=== PATIENT | male | born 1945 | race Caucasian/White ===

== ENCOUNTER → 2024-03-16 14:21 | Outpatient (REF) | payer MEDICARE, SELFPAY | LOC: RAD 14:21 | PROVIDERS: ATTENDING PHYSICIAN Physician Assistant; FAMILY PHYSICIAN Family Medicine | DX: I73.9 Peripheral vascular disease, unspecified (principal) | CPT/HCPCS: 93922; 93925 ==

== ENCOUNTER → 2025-04-06 10:23 | Outpatient (REF) | payer MEDICARE, SELFPAY | LOC: RAD 10:23 | PROVIDERS: ATTENDING PHYSICIAN Surgery Vascular Surgery; FAMILY PHYSICIAN Family Medicine | DX: I73.9 Peripheral vascular disease, unspecified (principal) | CPT/HCPCS: 93922; 93925 ==

== ENCOUNTER 2025-04-29 20:52 | Inpatient (IN) | payer MEDICARE, SELFPAY ==
[2025-04-29] VITALS (12 sets, daily range): BP systolic 93–132; BP diastolic 54–71; PULSE 90–97; BMI 28.3
[2025-04-29 17:38] LABS: Hematocrit 41.6 % (39.0-52.0); Hemoglobin 14.3 g/dL (13.0-18.0); Mean Corp Hgb Conc. 34.4 g/dL (33.0-37.0); Mean Corpuscular Volume 89.7 fL (80.0-94.0); Nucleated Red Blood Cells % 0 % (-); Platelet Count 320 10^3/uL (130-400); Red Cell Dist. Width 13.2 % (11.5-14.5)
[2025-04-29 17:50] LABS: ALT (SGPT) 29 U/L (0-50); AST (SGOT) 26 U/L (17-59); Albumin 4.9 g/dl (3.5-5.0); Alkaline Phosphatase 93 U/L (38-126); Blood Urea Nitrogen 30 mg/dl (9-20); Calcium 10.0 mg/dl (8.4-10.2); Carbon Dioxide 16 mmol/L (22-30); Chloride 102 mmol/L (98-107); Estimated Creatinine Clearance 51 ml/min; Glucose 217 mg/dl (70-99); Potassium 4.2 mmol/L (3.5-5.1); Sodium 135 mmol/L (135-145); Total Protein 7.7 g/dl (6.3-8.2); eGFR 56.23
[2025-04-29 18:03] LABS: Troponin I < 0.012 ng/ml
[2025-04-29] MEDS: NSS 1000 IV ×3 (18:05→23:18)
[2025-04-29] MEDS: ZOSYN 100 IV (19:50)
--- NOTE | 2025-04-29 19:52 | ED.GENMED ---
History of Present Illness
General
Chief Complaint: Breathing Problem
Source: patient and family
Time Seen by Provider: 04/29/25 17:15
History of Present Illness
History of Present Illness:
Note:
CHIEF COMPLAINT(S)
Dizziness and feeling of imminent syncope while driving.
HISTORY OF PRESENT ILLNESS
The patient is a 80-year-old male with a history of hypertension and diabetes. He reports starting to feel unwell around 1:30 PM today. Earlier in the day, he felt normal upon waking. The symptoms began after going to [employer] and included dizziness
and a tingling sensation in the feet. He described feeling as if he might pass out while driving, prompting him to have his take over driving. Upon arriving home, he asked his to call emergency services due to not feeling right. The
patient denies chest pain, heart palpitations, or fluttering but acknowledges experiencing slight shortness of breath. He has a history of high blood pressure and maintains his blood sugar levels around 100 mg/dL, though it yara to 171 mg/dL two
days ago after eating ice cream. He reported minor diarrhea the day before and again today.
PAST MEDICAL AND SURGICAL HISTORY
Hypertension, Diabetes.
ADDITIONAL HISTORY OBTAINED FROM SOURCE OTHER THAN THE PATIENT
The patients reported that she had to take over driving because the patient felt he was unable to continue safely due to his symptoms.
CHRONIC MEDICAL CONDITIONS SIGNIFICANTLY AFFECTING CARE
Hypertension, Diabetes.
MEDICATIONS
The patient is currently on Atorvastatin, Valsartan, Empagliflozin (Jardiance), and Metformin.
REVIEW OF SYSTEMS
- General: Reports dizziness and feeling of imminent syncope.
- Neurological: Tingling sensation in the feet.
- Respiratory: Slight shortness of breath noted.
PHYSICAL EXAM
General: Alert, no acute distress.
Skin: Warm, dry.
Head: Normocephalic, atraumatic.
Neck: Supple, trachea midline.
Eyes, Ears, Nose, Mouth, and Throat: Oral mucosa moist.
Cardiovascular: Normal peripheral perfusion, heart rate noted in the 90s, no murmurs.
Respiratory: Respirations are non-labored, lungs clear to auscultation.
Gastrointestinal: Abdomen nondistended.
Back: Normal range of motion, Normal alignment.
Musculoskeletal: Normal range of motion, normal strength.
Neurological: Alert and oriented to person, place, time, and situation, no focal neurological deficit observed.
Psychiatric: Cooperative, appropriate mood & affect.
PROBLEM LIST
Acute:
- Dizziness with near-syncope
- Tingling sensation in the feet
Chronic:
- Hypertension
- Diabetes mellitus
PLAN
- Perform orthostatic vital signs to assess for postural hypotension.
- Initiate IV fluids to address potential dehydration.
- Obtain laboratory tests including kidney function and hemoglobin levels.
- Conduct continuous monitoring and alert the care team if symptoms worsen.
- Review and assess echocardiogram and visit with vascular surgeon to check for any significant changes in vascular health.
DIFFERENTIAL DIAGNOSIS
The Differential Diagnosis includes, in no particular order and is not limited to:
1. Orthostatic hypotension
2. Transient ischemic attack
3. Cardiac arrhythmia
4. Vestibular dysfunction
5. Dehydration
6. Medication side effect
7. Vertigo
8. Hypoglycemia
9. Anemia
10. Peripheral neuropathy
EKG
My independent EKG interpretation is:
- Rhythm: Normal
- Heart Rate: Not specified
- [employer]: Normal
- Intervals: Normal
- ST Segment/T Wave Changes: Non-specific changes observed
- Additional Observations: No Q2C2 changes detected
Disposition:
SUMMARY OF ENCOUNTER
The patient, a 80-year-old male, presented to the emergency department with near-syncopal symptoms accompanied by shortness of breath. Initial findings included a white blood cell count of 18,000 and a lactic acid level of 3.2, indicating sepsis.
The patient also displayed a blood glucose level of 217 mg/dL and had a hazy opacity in the left lung on chest X-ray, suggestive of pneumonia. The patients blood pressure was recorded as low as 90 systolic in the emergency department, raising
concern for sepsis. Following administration of IV fluids, the patients condition improved, with blood pressure rising to 115 systolic, and the patient reported feeling better. Broad-spectrum antibiotics were ordered, and blood cultures were taken.
DISPOSITION
Admit.
ASSESSMENT
The patient showed signs of sepsis likely due to pneumonia, with concurrent hyperglycemia and hypotension, which were addressed with fluids and antibiotic treatment.
EMERGENCY TREATMENTS ADMINISTERED
IV fluids were administered in the emergency department.
MANAGEMENT OF THE PATIENTS CARE WAS DISCUSSED WITH
The case was discussed with hospitalists.
PLAN
Plan includes admitting the patient for continued monitoring and management of sepsis, initiation and adjustment of broad-spectrum antibiotics, and continued monitoring of vital signs and laboratory values to assess response to treatment.
INDEPENDENT REVIEW OF LABS AND INTERPRETATION OF TESTS
My independent review of CBC indicates leukocytosis with a white blood cell count of 18,000.
My independent review of blood chemistry indicates lactic acidosis with a lactic acid level of 3.2.
My independent review of blood glucose indicates hyperglycemia at 217 mg/dL.
DIAGNOSIS
Pneumonia, unspecified organism (ICD-10: J18.9)
Lactic acidosis (ICD-10: E87.2)
Leukocytosis, unspecified (ICD-10: D72.829)
Hyperglycemia, unspecified (ICD-10: R73.9)
Sepsis, unspecified (ICD-10: A41.9)
Phy Exam
Physical Exam
Physical Exam:
.
Scores
Heart Failure Risk
Heart Failure Risk Score: Not Applicable
Course
Orders/Labs/Results
Orders:
Orders
04/29/25 Dinner
1800 calorie (15 carb) Diabetic
At Your Request: Full Participation
04/29/25 17:04
Electrocardiogram (*1) Urgent
Reason for Study: Hypertension, Benign
EKG- Treatment ONCE
04/29/25 17:26
Complete Blood Count/With Diff Urgent
Comprehensive Metabolic Panel Urgent
Troponin I Urgent
04/29/25 17:58
0.9% Sodium Chloride 1000 ml [Nss] 1,000 ml IV BOLUS
04/29/25 17:59
CR Chest - 2 Views Urgent
Comment:
Reason For Exam: weak, sob
04/29/25 18:05
Lactic Acid Q4H
Comment: CANCEL 2nd LACTIC ACID IF 1st LACTIC ACID IS LESS THAN 2
Blood Culture Q30M
NATALIE Source: Blood/Venous
Specimen Description:
04/29/25 18:52
0.9% Sodium Chloride 1000 ml [Nss] 1,000 ml IV BOLUS
Piperacillin/Tazo 4.5 Gram [Zosyn] 4.5 gram in 100 ml IV NOW
04/29/25 19:07
COVID-19 Antigen Urgent
Source: Nasal Swab
Blood Culture Q30M
NATALIE Source: Blood/Venous
Specimen Description:
04/29/25 19:53
Urinalysis Reflex To Culture Urgent
Date Specimen was Collected: 04/29/25
Time Specimen was Collected: 19:49
04/29/25 20:32
Admit/Transfer Patient As Directed
Co-Sign Provider:
Level of Care: Inpatient admission
Assign to:: Telemetry
Physician / Group: Prerna
Diagnosis: Sepsis/PNA
Reason for Telemetry: Syncope
Date to Stop Telemetry: 05/01/25
Time to Stop Telemetry: 11:00
Reason for Hospitalization: syncope
Expected length of stay greater than two midnights?: Yes
ELOS- Estimated Length of Stay in days: 2
I certify the patient meets the requirements for IP care: Yes
PRN Pain Medication Management As Directed
May give lesser potent ordered pain med per pt: Yes
preference::
Protocol:: Medication orders for pain may be administered in a
manner that supports deferring to patient preference
when the pt is:
- Requesting an ordered lesser potent pain medication.
Least to most potent pain medications are defined
as: acetaminophen < NSAID < tramadol < opioids
(morphine, oxycodone, hydromorphone).
- Requesting a lesser dose of the same medication IF
ORDERED.
- Requesting a less intrusive route of administration
if both routes are prescribed by the provider (PO <
IV).
04/29/25 20:33
Code Status As Directed
Resuscitation Status: Full Code
04/29/25 20:41
Doxycycline [Vibramycin] 100 mg PO NOW STA
04/29/25 20:44
Vancomycin [Vancocin] 2,000 mg 0.9% Sodium Chloride 500 ml [Nss] 500 ml IV NOW
04/29/25 22:27
0.9% Sodium Chloride 1000 ml [Nss] 1,000 ml IV 100 mls/hr
Acetaminophen [Tylenol] 650 mg PO Q4HPRN PRN
Guaifenesin/Dextromethorphan [Robitussin Dm] 5 ml PO Q6HPRN PRN
Mag Hydrox/Al Hydrox/Simeth [Maalox] 15 ml PO QIDPRN PRN
Ondansetron Injectable [Zofran] 4 mg IV Q6HPRN PRN
04/29/25 22:27
Respiratory Culture/Gram Stain Urgent
NATALIE Source: Sputum
Specimen Description:
Date Specimen was Collected: 04/29/25
Time Specimen was Collected: 23:14
Activity As Directed
Activity Level: Out of Bed-Early Mobility
Bedside Glucose Monitoring As Directed
Frequency: AC&HS
Intake/ Output As Directed
Frequency: Per unit guidelines
Orthostatic Vital Signs As Directed
Orthostatic VS Frequency: Daily
Vital Signs As Directed
Frequency: Per unit guidelines
Weight As Directed
Frequency: Once
Comment: on admission
Pulse Ox/cont/shift [RESP] Routine
Quantity: 1
Special Instructions: notify provider if SPO2 < 91%
Rx Incentive Spirometry [RESP] Routine
Frequency: q1h while awake
Pt Eval And Treat Routine
Activity Level: With Assistance
DX Deep Vein Thrombosis Video Routine
04/29/25 22:40
Pantoprazole [Protonix] 40 mg PO DAILYPRN PRN
04/29/25 23:10
Lactic Acid Q4H
Comment: CANCEL 2nd LACTIC ACID IF 1st LACTIC ACID IS LESS THAN 2
04/29/25 23:11
Influenza A+B Rapid Molecular Routine
NATALIE Source: Nasal Swab
Specimen Description:
04/29/25 23:12
MRSA Screen Routine
NATALIE Source: Nose
Specimen Description:
04/29/25 23:14
Legionella Urinary Antigen Routine
NATALIE Source: Urine
Specimen Description:
Strep pneumoniae Antigen Routine
NATALIE Source: Urine
Specimen Description:
04/30/25 02:00
CefTRIAXone [Rocephin] 1,000 mg IV Q24H
04/30/25 06:00
Basic Metabolic Panel IN AM
Complete Blood Count/No Diff IN AM
04/30/25 07:30
Insulin Aspart Corrective Low [Novolog Flexpen-Low Resistance] See Protocol SC AC
04/30/25 08:00
Atorvastatin [Lipitor] 10 mg PO DAILY
Cyanocobalamin [Vitamin B-12] 1,000 mcg PO DAILY
Dapagliflozin [Farxiga] 10 mg PO DAILY
Doxycycline [Vibramycin] 100 mg PO BID
Glipizide Extended Release [Glucotrol Xl (Extended Release)] 20 mg PO DAILY
Valsartan [Diovan] 160 mg PO DAILY
04/30/25 18:00
Enoxaparin Sodium [Lovenox] 40 mg SC QPM
05/01/25 11:00
DC Protocol for Telemetry ONCE
Abnormal Lab Results
04/29/25 04/29/25 04/29/25
17:26 18:05 19:53
WBC 18.1 H 10^3/uL
(4.8-10.8)
RBC 4.64 L 10^6/uL
(4.70-6.10)
MPV 11.0 H fL
(7.4-10.4)
Abs Immat Gran (auto) 0.1 H 10^3/uL
(0-0.05)
Absolute Neuts (auto) 13.6 H 10^3/uL
(1.4-6.5)
Absolute Monos (auto) 1.4 H 10^3/uL
(0.1-0.6)
Lymphocytes % 15.4 L %
(20.5-51.1)
Carbon Dioxide 16 L mmol/L
(22-30)
BUN 30 H mg/dl
(9-20)
Glucose 217 H mg/dl
(70-99)
Lactic Acid 3.2 H mmol/L
(0.7-2.0)
Urine Glucose 4+ A
(Negative)
04/29/25 17:26
04/29/25 17:26
Vital Signs
Initial and Last Documented VS:
Initial Vital Signs
Temp Pulse Resp BP Pulse Ox
98.3 F 91 22 108/62 100
04/29/25 17:02 04/29/25 17:02 04/29/25 17:02 04/29/25 17:02 04/29/25 17:02
Last Documented Vital Signs
Temp Pulse Resp BP Pulse Ox
98.3 F 76 18 119/56 100
04/29/25 17:02 04/29/25 19:52 04/29/25 19:52 04/29/25 19:00 04/29/25 19:53
*Pulse Oximetry
SaO2: 100
Oxygen Mode of Delivery: Room air
Patient hypoxic: no
*Critical Care Note
Total Time (30-74mins, 75-104mins- exclusive of procedures): 40 minutes
ED Attending Note
-
Portions of this chart may have been created with voice recognition software.� Occasional wrong word or��sound alike� substitutions may have occurred due to the inherent limitations of voice recognition software.
Discharge Plan
Departure
Patient Disposition: Admit
Date of Disposition: 04/29/25
Time of Disposition: 19:52
Admit to: Telemetry
Presentation/result/management discussed w/ accepting MD/DO: Hospitalist
Discharge Problem:
Sepsis, Pneumonia
Interventions
Interventions:
*Risk Screen - Suicide Last Done: 04/29/25 17:12
*General Assessment Last Done: 04/29/25 17:12
*Neglect/Abuse Screening Last Done: 04/29/25 17:12
*ED- Fall Risk Assessment Last Done: 04/29/25 17:12
*ED COVID-19 Vaccine History Last Done: 04/29/25 17:12
ED- Cardiac Assessment Last Done: 04/29/25 17:08
ED- Pulmonary Assessment Last Done: 04/29/25 17:08
[2025-04-29 20:02] LABS: Urine Character Clear (Clear)
--- NOTE | 2025-04-29 20:10 | HPS.HSE ---
Family Physician
-
Family Physician: Rocael Kimble
Chief Complaint
-
Syncopal episode, shortness of breath
History of Present Illness
This is a 80-year-old male with past medical history of [id number] diabetes, hypertension, presenting to the emergency department for feeling unwell and having an episode of dizziness with tingling sensation in his lower extremities.
Patient reported that he woke up with poor appetite this morning. Reported that he ate less than his usual amount and felt somewhat unwell. His already reported that he needs to go to the emergency department. He did report 1 episode of
loose stools yesterday and today. Otherwise reports he has been in usual state of health without any recent travel sick contacts or hospitalizations. Denies any recent antibiotic use. Denies any recent episodes of orthostatic dizziness,
palpitations, chest pain or exertional dyspnea lower extremity edema cough fevers or chills. He denies having any runny nose sore throat.
By afternoon patient felt lethargic and thought he might walk around to get some air. He went to a shopping mall and while pushing around the cath he felt out of breath and then started feeling lightheaded. When he got into his car he became more
short of breath and diaphoretic. He denies having any chest pain pleuritic or otherwise. He denies any nausea or vomiting. He also reports never having any fevers but continued to have some cold sweats until arrival in the emergency department.
Reports blood sugar levels was around 100 mg per DL but has elevated to 171 mg in the last 2 days. Denies any melena or hematochezia and denies any diarrhea.
In the emergency department his blood pressure was 110/56 with a pulse rate of 76 and he was satting 100% on room air. Temperature was 98.3. This chest x-ray shows a hazy left lower lobe opacity. ECG shows a normal sinus rhythm at a rate of 94.
Troponin was negative. He has a white count of 18 with otherwise normal hemoglobin and platelet counts. His electrolytes were normal except for a bicarb of 16 and anion gap of 17. BUN and creatinine were stable at 30 and 1.3. U/A neg. Viral
panel negative.
Medical History
Past Medical History
Past Medical History: Reports HTN and NIDDM
Past Surgical History: Reports Orthopedic and Tonsilectomy
Social History
Tobacco: Non-smoker
Alcohol: None
Drug: None
Living: With Family
Family History
Family History: Not pertinent
Allergies / Home Medications
Allergies reflects when Allergies were last updated in [facility].
Home Medications with original date entered in [facility]
Allergy/Medication List:
Allergies
Allergy/AdvReac Type Severity Reaction Status Date / Time
No Known Allergies Allergy Unverified 05/04/10 09:48
Home Medications
Hemp-Cbd Gummies 2 tab PO DAILY 04/29/25
acetylcarnitine HCl 250 mg capsule 250 mg PO DAILY 04/29/25
alpha lipoic acid 100 mg capsule 100 mg PO DAILY 04/29/25
atorvastatin 10 mg tablet (Lipitor) 10 mg PO DAILY 04/29/25
coQ10 (ubiquinol) 100 mg capsule 100 mg PO DAILY 04/29/25
cyanocobalamin (vitamin B-12) 1,000 mcg tablet 1,000 mcg PO DAILY 04/29/25
diphenhydramine 25 mg-acetaminophen 500 mg tablet (Acetaminophen PM) 2 tab PO HSPRN PRN sleep 04/29/25
empagliflozin 25 mg tablet (Jardiance) 25 mg PO DAILY 04/29/25
glipizide 10 mg tablet, extended release 24 hr 20 mg PO DAILY 04/29/25
glucosamine-chondroitin 250 mg-200 mg tablet 1 tab PO DAILY 04/29/25
metformin 1,000 mg tablet 1,000 mg PO BID 04/29/25
omeprazole 40 mg capsule,delayed release 40 mg PO DAILYPRN PRN gerd 04/29/25
pyridoxine (vitamin B6) 50 mg tablet 50 mg PO DAILY 04/29/25
turmeric 400 mg capsule 400 mg PO DAILY 04/29/25
valsartan 160 mg-hydrochlorothiazide 12.5 mg tablet 1 tab PO DAILY 04/29/25
Review of Systems
-
Constitutional: Reports No Symptoms
EENT: Reports No Symptoms
Respiratory: Reports Trouble Breathing
Cardiac: Reports No Symptoms
Abdomen/GI: Reports No Symptoms
: Reports No Symptoms
Musculoskeletal: Reports No Symptoms
Skin: Reports No Symptoms
Neurological: Reports Dizzy and Weakness
Endocrine: Reports No Symptoms
Hematologic/Lymphatic: Reports No Symptoms
Psych: Reports No Symptoms
Physical Exam
Vital Signs
Vital Signs
Temp Pulse Resp BP Pulse Ox
98.3 F 76 18 119/56 100
04/29/25 17:02 04/29/25 19:52 04/29/25 19:52 04/29/25 19:00 04/29/25 19:53
Physical Exam
General: Well Developed, Well Nourished and No Apparent Distress
HEENT: NormoCephalic, Moist mucous membranes and Atraumatic
Respiratory: Clear
Cardiac: S1/S2 and Regular Rhythm; No Murmur or Rub
GI: Soft, Non Tender, Non Distended and Normal Bowel Sounds; No Organomegaly
Rectal: Deferred by Provider
Musculoskeletal: No Clubbing, No Cyanosis and No Edema
Skin: No Rash
Neuro: AO x 3 and Nonfocal/grossly intact
Laboratory Results
-
04/29/25 17:26
04/29/25 17:26
Laboratory Results
Lactic Acid 3.2 mmol/L (0.7-2.0) H 04/29/25 18:05
Total Bilirubin 0.8 mg/dl (0.2-1.3) 04/29/25 17:26
AST 26 U/L (17-59) 04/29/25 17:26
ALT 29 U/L (0-50) 04/29/25 17:26
Alkaline Phosphatase 93 U/L (38-126) 04/29/25 17:26
Troponin I < 0.012 ng/ml 04/29/25 17:26
Data Reviewed
-
Diagnostic Radiology: Image Personally Visualized and interpreted and Report Reviewed by me
Medical Tests (Nuc Med, Echo, EKG etc): Image Personally Visualized and interpreted
Lab Data: Labs Reviewed by me
Old Records: Reviewed
Impression/Plan
-
IMPRESSION:
This is a generally healthy 80-year-old, [id number]-zeqtappnc diabetes, hypertension who is well-appearing but appears to present to the emergency department with lightheadedness/presyncope and found to have a left lower lobe opacity on x-ray with
leukocytosis but no hypoxia. Patient has subjective shortness of breath. ECG is nonischemic and in normal sinus rhythm with normal troponin. UA was negative. Labs notable for lactic acid elevation elevated BBC but otherwise unremarkable. He has
a mild gap and nongap acidosis.
PLAN:
Sepsis -left lower lobe opacity, leukocytosis, lactic acidosis in setting of subjective chills lethargy but no hypoxia. No history of aspiration. Will admit for sepsis source is likely left lower lobe pneumonia. Patient has no findings to suggest
MRSA of Pseudomonas.
-Admit to telemetry
-Status post 2 L normal saline in ED, continue with maintenance fluids
-Hold metformin for now
-Blood cultures x 2
- check pna ag, legionella ag
- given vanc/zosyn in ED, Continue with ceftriaxone and doxycycline
-MRSA swab
-No sputum for cultures at this time
-Will continue to monitor on telemetry for presyncopal episode but no further cardiac management
Type 2 diabetes
-Hold metformin for lactic acidosis
-Continue with sliding scale insulin
-Continue glipizide
-Continue Jardiance
Hypertension
-Restart losartan hydrochlorothiazide in a.m.
DVT prophylaxis�Lovenox subcu
CODE STATUS�full code
[2025-04-29 20:32] LABS: COVID-19 Antigen Negative (Negative)
[2025-04-29] MEDS: VIBRAMYCIN 100 MG PO (22:21)
[2025-04-29] MEDS: VANCOCIN 540 MG IV (22:21)
[2025-04-30] VITALS (7 sets, daily range): BP systolic 116–154; BP diastolic 59–106; PULSE 75; O2SAT 98; BMI 27.8
[2025-04-30] MEDS: BENADRYL 25 MG PO ×2 (01:42→22:00)
[2025-04-30] MEDS: TYLENOL 650 MG PO ×2 (01:42→22:00)
[2025-04-30] MEDS: STERILE WATER FOR INJECTION 10 ML IV (02:05)
[2025-04-30] MEDS: ROCEPHIN 1000 MG IV (02:05)
[2025-04-30 07:26] LABS: Hematocrit 34.8 % (39.0-52.0); Hemoglobin 11.3 g/dL (13.0-18.0); Mean Corp Hgb Conc. 32.5 g/dL (33.0-37.0); Mean Corpuscular Volume 92.6 fL (80.0-94.0); Platelet Count 234 10^3/uL (130-400); Red Cell Dist. Width 13.2 % (11.5-14.5)
[2025-04-30 07:31] LABS: Blood Urea Nitrogen 29 mg/dl (9-20); Calcium 8.6 mg/dl (8.4-10.2); Carbon Dioxide 22 mmol/L (22-30); Chloride 109 mmol/L (98-107); Estimated Creatinine Clearance 61 ml/min; Glucose 68 mg/dl (70-99); Potassium 4.0 mmol/L (3.5-5.1); Sodium 138 mmol/L (135-145); eGFR > 60.00
[2025-04-30 08:11] LABS: Glucose - Point of Care 66 mg/dl (70-99)
[2025-04-30 08:34] LABS: Glucose - Point of Care 100 mg/dl (70-99)
[2025-04-30] MEDS: FARXIGA 10 MG PO (08:49)
[2025-04-30] MEDS: VITAMIN B-12 1000 MCG PO (08:50)
[2025-04-30] MEDS: VIBRAMYCIN 100 MG PO ×2 (08:50→20:40)
[2025-04-30] MEDS: LIPITOR 10 MG PO (08:50)
[2025-04-30] MEDS: GLUCOTROL XL (EXTENDED RELEASE) 20 MG PO (08:50)
[2025-04-30] MEDS: ORETIC 12.5 MG PO (08:50)
[2025-04-30] MEDS: DIOVAN 160 MG PO (08:54)
[2025-04-30 09:02] LABS: Hepatitis C Antibody Negative (Negative)
[2025-04-30 10:50] LABS: Glucose - Point of Care 98 mg/dl (70-99)
[2025-04-30] MEDS: NSS 1000 IV ×2 (11:53→20:46)
--- NOTE | 2025-04-30 12:36 | W.PN.HOSP.TC ---
Today's Communication/Plan
-
cont abx
f/u cultures
f/u stool studies
probiotics if stool cultures neg
Assessment / Plan
Assessment / Plan
Physical Exam
General: Well Developed, Well Nourished and No Apparent Distress
HEENT: NormoCephalic, Moist mucous membranes and Atraumatic
Respiratory: Clear
Cardiac: S1/S2 and Regular Rhythm; No Murmur or Rub
GI: Soft, Non Tender, Non Distended and Normal Bowel Sounds; No Organomegaly
Rectal: Deferred by Provider
Musculoskeletal: No Clubbing, No Cyanosis and No Edema
Skin: No Rash
Neuro: AO x 3 and Nonfocal/grossly intact
Severe Sepsis
Elevated lactate
Left lower lobe pneumonia.
-Admit to telemetry
-Status post 2 L normal saline in ED, continue with maintenance fluids
-Hold metformin for now
-Blood cultures x 2
- strep pna ag, legionella ag - negative
- Continue with ceftriaxone and doxycycline
-MRSA swab
-Sputum cultures if expectorating
Diarrhea
-most likely related to abx
F/u CDif, stool cultures
-probiotics
-abd nondistended, nontender
Type 2 diabetes
-Hold metformin for lactic acidosis
-Continue with sliding scale insulin
-Continue glipizide
-Continue Jardiance
Hypertension
-hold losartan hydrochlorothiazide
DVT prophylaxis�Lovenox subcu
CODE STATUS�full code
Anticipated Discharge: 24 - 48 hours
Subjective/Interval History
-
Date of Service: April 30, 2025
feels much better. Respiratory symptoms improved
Objective Data
-
Labs:
Laboratory Results
04/30/25
06:45
WBC 8.7
Hgb 11.3 L D
Hct 34.8 L
Plt Count 234 D
Sodium 138
Potassium 4.0
Chloride 109 H
Carbon Dioxide 22
BUN 29 H
Creatinine 1.1
Glucose 68 L
Calcium 8.6
Vital Signs:
Vital Signs
Temp Pulse Resp BP Pulse Ox
97.5 F 75 17 136/68 98
04/30/25 11:47 04/30/25 11:47 04/30/25 11:47 04/30/25 11:47 04/30/25 11:47
I&O
04/29/25 04/30/25 05/01/25
06:59 06:59 06:59
Intake Total 480 / 480 300 / 300
Balance 480 / 480 300 / 300
Review of Systems
-
History Source: Patient
All other systems: Not reviewed unless documented
Data Reviewed
-
Diagnostic Radiology: Report Reviewed by me
Labs: Labs Reviewed by me
[2025-04-30 12:52] LABS: Glucose - Point of Care 104 mg/dl (70-99)
--- NOTE | 2025-04-30 13:05 | CM ---
Patient seen at bedside with and children
IA completed
Lives at a 2 story home, 2 steps to enter, flight to bedroom & bathroom, powder room on 1st floor
PLOF: Independent without device
DME: Cane, walker, commode
Denies VN/Rehab
Denies insecurities
PT to eval
PCP: Rocael Kimble
Pharmacy: [facility]
PLAN: Home, await PT eval, CM to follow for needs
[2025-04-30 16:36] LABS: Glucose - Point of Care 114 mg/dl (70-99)
[2025-04-30] MEDS: LOVENOX 40 MG SC (17:46)
[2025-04-30 21:40] LABS: Glucose - Point of Care 125 mg/dl (70-99)
[2025-05-01] MEDS: PROTONIX 40 MG PO (01:16)
[2025-05-01] MEDS: ROCEPHIN 1000 MG IV (01:50)
[2025-05-01] MEDS: STERILE WATER FOR INJECTION 10 ML IV (01:50)
[2025-05-01 04:03] VITALS: BP 122/70
[2025-05-01 06:30] LABS: Hematocrit 33.4 % (39.0-52.0); Hemoglobin 11.1 g/dL (13.0-18.0); Mean Corp Hgb Conc. 33.2 g/dL (33.0-37.0); Mean Corpuscular Volume 93.0 fL (80.0-94.0); Platelet Count 218 10^3/uL (130-400); Red Cell Dist. Width 13.2 % (11.5-14.5)
[2025-05-01 06:58] LABS: ALT (SGPT) 21 U/L (0-50); AST (SGOT) 19 U/L (17-59); Albumin 3.5 g/dl (3.5-5.0); Alkaline Phosphatase 55 U/L (38-126); Blood Urea Nitrogen 19 mg/dl (9-20); Calcium 8.7 mg/dl (8.4-10.2); Carbon Dioxide 21 mmol/L (22-30); Chloride 111 mmol/L (98-107); Estimated Creatinine Clearance 67 ml/min; Glucose 133 mg/dl (70-99); Magnesium 1.7 mg/dl (1.6-2.3); Potassium 4.1 mmol/L (3.5-5.1); Sodium 138 mmol/L (135-145); Total Protein 5.9 g/dl (6.3-8.2); eGFR > 60.00
[2025-05-01 07:35] VITALS: BP 150/70
[2025-05-01 07:44] LABS: Glucose - Point of Care 116 mg/dl (70-99)
[2025-05-01] MEDS: GLUCOTROL XL (EXTENDED RELEASE) 20 MG PO (07:58)
[2025-05-01] MEDS: LIPITOR 10 MG PO (07:58)
[2025-05-01] MEDS: VITAMIN B-12 1000 MCG PO (07:58)
[2025-05-01] MEDS: FARXIGA 10 MG PO (07:58)
[2025-05-01] MEDS: VIBRAMYCIN 100 MG PO (07:58)
[2025-05-01] MEDS: VISBIOME 1 CAP PO (07:58)
[2025-05-01] MEDS: NSS IV (10:27)
[2025-05-01 10:59] VITALS: BP 152/79
--- NOTE | 2025-05-01 11:41 | W.PN.HOSP.TC ---
Addendum entered and electronically signed by Raymon Orantes MD 05/01/25 14:56:
[id number]
Original Note:
Today's Communication/Plan
-
Complete antibiotic course
Follow-up PCP outpatient
Follow labs outpatient
Assessment / Plan
Assessment / Plan
Physical Exam
General: Well Developed, Well Nourished and No Apparent Distress
HEENT: NormoCephalic, Moist mucous membranes and Atraumatic
Respiratory: Clear
Cardiac: S1/S2 and Regular Rhythm; No Murmur or Rub
GI: Soft, Non Tender, Non Distended and Normal Bowel Sounds; No Organomegaly
Rectal: Deferred by Provider
Musculoskeletal: No Clubbing, No Cyanosis and No Edema
Skin: No Rash
Neuro: AO x 3 and Nonfocal/grossly intact
Severe Sepsis
Elevated lactate, resolved
Left lower lobe pneumonia.
-Admit to telemetry
-Status post 2 L normal saline in ED, continue with maintenance fluids
- strep pna ag, legionella ag - negative
- Continue with ceftriaxone and doxycycline�switch to cefdinir to complete 7-day course of ceftriaxone and cefdinir total and additional 4 days of doxycycline to complete 5-day course
-MRSA swab negative
-Sputum cultures if expectorating
Diarrhea, improving
-most likely related to abx
F/u CDif negative
-probiotics
-abd nondistended, nontender
Type 2 diabetes
-Hold metformin for lactic acidosis, can resume upon discharge
-Continue with sliding scale insulin
-Continue glipizide
-Continue Jardiance
Hypertension
-hold losartan hydrochlorothiazide, can resume upon discharge
DVT prophylaxis�Lovenox subcu
CODE STATUS�full code
More than 30 minutes spent in discharge including
Final examination of the patient
Summarizing hospital stay
Instructions for continuing care to all relevant caregivers
Preparation of discharge records, prescriptions, and referral forms
Total time spent (in minutes): 36
Anticipated Discharge: Today
Subjective/Interval History
-
Date of Service: May 01, 2025
Patient feels much better back to normal
Objective Data
-
Labs:
Laboratory Results
05/01/25
05:55
WBC 8.8
Hgb 11.1 L
Hct 33.4 L
Plt Count 218
Sodium 138
Potassium 4.1
Chloride 111 H
Carbon Dioxide 21 L
BUN 19
Creatinine 1.0
Glucose 133 H
Calcium 8.7
Total Bilirubin 0.4
AST 19
ALT 21
Alkaline Phosphatase 55
Vital Signs:
Vital Signs
Temp Pulse Resp BP Pulse Ox
97.6 F 78 14 152/79 97
05/01/25 10:59 05/01/25 10:59 05/01/25 10:59 05/01/25 10:59 05/01/25 10:59
I&O
04/30/25 05/01/25 05/02/25
06:59 06:59 06:59
Intake Total 480 / 480 960 / 960 960 / 960
Output Total 525 / 525
Balance 480 / 480 960 / 960 435 / 435
Review of Systems
-
History Source: Patient
All other systems: Not reviewed unless documented
Data Reviewed
-
Diagnostic Radiology: Report Reviewed by me
Labs: Labs Reviewed by me
--- NOTE | 2025-05-01 12:04 | CM ---
Pt cleared for discharge to home. No needs identified. IMM signed and placed in chart; pt provided with a copy of the IMM.
Pt's and daughter accompanied him to the car/home.
== END 2025-05-01 12:10 | disposition home or self-care (01) | DRG 193 ==
LOC: 3 WEST ACU 20:52
PROVIDERS: ADMITTING PHYSICIAN Internal Medicine; ATTENDING PHYSICIAN Internal Medicine; EMERGENCY PHYSICIAN Emergency Medicine; FAMILY PHYSICIAN Family Medicine
DX: J18.9 Pneumonia, unspecified organism (principal); A41.9 Sepsis, unspecified organism; R65.20 Severe sepsis without septic shock; E87.20 Acidosis, unspecified; E11.9 Type 2 diabetes mellitus without complications; I10 Essential (primary) hypertension; Z11.52 Encounter for screening for COVID-19; Z79.84 Long term (current) use of oral hypoglycemic drugs; Z79.899 Other long term (current) drug therapy
CPT/HCPCS: 71046; 80048; 80053; 81003; 82962; 83605; 83735; 84484; 85025; 85027; 86803; 87040; 87045; 87046; 87070; 87324; 87427; 87449; 87502; 87641; 87811; 87899; 93005; 96361; 96365; 96366; 96367; 97116; 97162; 99291

== ENCOUNTER → 2025-05-13 10:04 | Outpatient (REF) | payer MEDICARE, SELFPAY | LOC: RAD 10:04 | PROVIDERS: ATTENDING PHYSICIAN Family Medicine | DX: J18.9 Pneumonia, unspecified organism (principal); Z68.28 Body mass index [BMI] 28.0-28.9, adult | CPT/HCPCS: 71046 ==